=== PATIENT | female | born 1950 | race Caucasian/White ===

== ENCOUNTER → 2018-10-23 | Outpatient (CLI) | payer OTHER ==
[~2018-10-23] VITALS: Ht 162.6 cm; Wt 86.2 kg
[~2018-10-23] MED LIST: ATORVASTATIN CA40 MG PO; CELEXA10 MG PO; LOSARTAN-HCTZ1 EAC1 PO; PRILOSEC 20 MG20 MG PO; PROAIR HFA8.5 GM INH; SYNTHROID50 MCG PO
--- NOTE | 2018-10-24 17:06 | PATH ---
[facility] [address] [place] [address] PATHOLOGY RPT PROCEDURE Name: ANABELLA RIDLEY Room #: REG [facility]..#: [id number] ������������������ Admission: 10/23/18 ������������������ Date of : 52 Discharge: Report #: [id number] Path Case #: [id number] [facility] Accession Number: [id number] . 01 Material submitted: . POLYP AT ASCENDING COLON X5 . 01 Clinical history: . Screening Colon polyps, diverticulosis . 02 Diagnosis: Polyp x5, at ascending colon, endoscopic biopsy: - Multiple fragments of tubular adenoma. - Negative for high-grade dysplasia. (IUV:pit 10/24/2018) QTP/10/24/2018 . 02 Electronically signed: . Diane Torre MD, Pathologist NPI- [id number] . 01 Gross description: . The specimen is received in formalin, labeled "Anabella Ridley, polyp at ascending colon x5" and consists of multiple (more than 5) fragments of wagner tissue measuring 1.1 x 0.9 x 0.2 cm in aggregate which are entirely submitted in A1. (SDY; 10/23/2018) SYU/SYU . 02 Pathologist provided ICD-10: D12.2 . 02 CPT . 544025 Specimen Comment: A courtesy copy of this report has been sent to Specimen Comment: [phone], . Specimen Comment: Report sent to / DR FOX Performed at: [address], [place], [place] [id number] MD Jamie Ramsey MD Phone: [phone] Performed at: [address] [id number] MD Diane Torre MD Phone: [phone]
== END | disposition home or self-care (01) ==
LOC: GI 07:44
DX: Z12.11 Encounter for screening for malignant neoplasm of colon (principal); Z86.010 Personal history of colon polyps; D12.2 Benign neoplasm of ascending colon; K57.30 Diverticulosis of large intestine without perforation or abscess without bleeding; K64.8 Other hemorrhoids; I10 Essential (primary) hypertension; E78.5 Hyperlipidemia, unspecified; J45.909 Unspecified asthma, uncomplicated; E03.9 Hypothyroidism, unspecified; K21.9 Gastro-esophageal reflux disease without esophagitis; E66.09 Other obesity due to excess calories; F32.9 Major depressive disorder, single episode, unspecified; Z88.8 Allergy status to other drugs, medicaments and biological substances; Z90.710 Acquired absence of both cervix and uterus; Z98.890 Other specified postprocedural states; Z79.899 Other long term (current) drug therapy
CPT/HCPCS: 62110; 62900